=== PATIENT | male | born 1960 | race Caucasian/White ===

== ENCOUNTER 2019-10-26 12:29 | Inpatient (IN) ==
[2019-10-26] MEDS ORDERED: 0.9 % Sodium Chloride 1,000 ML IVC ONE (12:35)
[2019-10-26] MEDS ORDERED: GI Cocktail 40 ML EACH PO ONE (12:35)
[2019-10-26] MEDS ORDERED: Pantoprazole 40 MG VIAL IVP ONE (12:35)
[2019-10-26] MEDS ORDERED: Ondansetron 4 MG/2 ML VIAL IVP ONE ×2 (12:35→13:27)
[2019-10-26 12:55] LABS: Basophils % 0.2 %; Eosinophils # 0.2 K/mcL (0.0-0.6); Eosinophils % 1.2 %; Hematocrit 40.7 % (37.5-50.1); Hemoglobin 13.9 g/dL (12.9-16.9); Immature Granulocytes % 0.4 % (0-4); Lymphocytes # 1.1 K/mcL (0.6-4.6); Lymphocytes % 7.2 %; Mean Corpuscular HGB Conc 34.2 g/dL (31.6-35.5); Mean Corpuscular Hemoglobin 30.8 pg (28.0-33.3); Mean Platelet Volume 9.2 fL (9.4-12.4); Monocytes # 0.8 K/mcL (0.0-1.3); Monocytes % 5.4 %; Neutrophils # 12.8 K/mcL (1.6-8.9); Platelet Count 190 K/mcL (140-400); Red Blood Count 4.52 M/mcL (4.19-5.50); Red Cell Distribution Width 12.5 % (11.5-14.5); Segmented Neutrophils % 85.6 %; White Blood Count 14.9 K/mcL (4.3-11.1)
[2019-10-26 13:22] LABS: Troponin I < 0.03 ng/mL (< 0.04)
[2019-10-26 13:23] LABS: Alanine Aminotransferase 16 Units/L (7-52); Albumin 3.6 g/dL (3.5-5.7); Albumin/Globulin Ratio 1.6 (1.1-2.2); Alkaline Phosphatase 56 Units/L (34-104); Amylase > 2000 Units/L (29-103); Aspartate Amino Transferase 16 Units/L (13-39); BUN/Creatinine Ratio 19 (6-26); Bilirubin,Direct 0.1 mg/dL (0.0-0.2); Bilirubin,Indirect 0.7 mg/dL (0.0-1.0); Bilirubin,Total 0.8 mg/dL (0.3-1.0); Blood Urea Nitrogen 24 mg/dL (8-23); Calcium 8.8 mg/dL (8.6-10.3); Carbon Dioxide 29 mEq/L (23-29); Chloride 104 mEq/L (98-107); Globulin 2.2 g/dL (2.4-3.5); Glucose 131 mg/dL (70-105); Osmolality,Calculated 298 (280-300); Potassium 3.5 mEq/L (3.5-5.1); Sodium 141 mEq/L (136-145); Total Protein 5.8 g/dL (6.4-8.9); eGFR For African Americans > 60 (> 60); eGFR For Non-African Americans 57 (> 60)
[2019-10-26] MEDS ORDERED: Morphine Sulfate 2 MG/ML SYRINGE IVP ONE (13:27)
[2019-10-26 13:36] LABS: Lipase > 1800 Units/L (11-82)
[2019-10-26] MEDS ORDERED: Ondansetron 4 MG/2 ML VIAL IVP PRN (14:39)
[2019-10-26] MEDS ORDERED: Morphine Sulfate 2 MG/ML SYRINGE IVP PRN (14:45)
[2019-10-26] MEDS: *HR* OxyCODONE/APAP 5/325 TABLET PO PRN ×2 (17:26→23:46)
[2019-10-26] MEDS: 0.9 % Sodium Chloride 1,000 ML IVC SCH (17:34)
[2019-10-26] MEDS: Piperacillin/Tazobactam 3.375 GM in 0.9 % Sodium Chloride Mini Bag 100 ML IVPB SCH (17:35)
[2019-10-27] MEDS: Piperacillin/Tazobactam 3.375 GM in 0.9 % Sodium Chloride Mini Bag 100 ML IVPB SCH ×3 (01:51→15:36)
[2019-10-27] MEDS: 0.9 % Sodium Chloride 1,000 ML IVC SCH ×3 (01:53→18:46)
[2019-10-27 07:30] LABS: Basophils % 0.1 %; Eosinophils # 0.1 K/mcL (0.0-0.6); Eosinophils % 0.9 %; Hematocrit 37.5 % (37.5-50.1); Hemoglobin 13.1 g/dL (12.9-16.9); Immature Granulocytes % 0.3 % (0-4); Lymphocytes % 9.6 %; Mean Corpuscular HGB Conc 34.9 g/dL (31.6-35.5); Mean Corpuscular Hemoglobin 31.1 pg (28.0-33.3); Mean Corpuscular Volume 89.1 fL (83.0-100.0); Mean Platelet Volume 9.4 fL (9.4-12.4); Monocytes # 0.7 K/mcL (0.0-1.3); Monocytes % 6.8 %; Neutrophils # 8.2 K/mcL (1.6-8.9); Platelet Count 166 K/mcL (140-400); Red Blood Count 4.21 M/mcL (4.19-5.50); Red Cell Distribution Width 12.8 % (11.5-14.5); Segmented Neutrophils % 82.3 %
[2019-10-27 08:13] LABS: Alanine Aminotransferase 12 Units/L (7-52); Albumin 3.2 g/dL (3.5-5.7); Albumin/Globulin Ratio 1.7 (1.1-2.2); Alkaline Phosphatase 48 Units/L (34-104); Amylase 628 Units/L (29-103); Aspartate Amino Transferase 14 Units/L (13-39); BUN/Creatinine Ratio 23 (6-26); Bilirubin,Total 1.1 mg/dL (0.3-1.0); Blood Urea Nitrogen 30 mg/dL (8-23); Calcium 8.4 mg/dL (8.6-10.3); Carbon Dioxide 27 mEq/L (23-29); Chloride 107 mEq/L (98-107); Globulin 1.9 g/dL (2.4-3.5); Glucose 117 mg/dL (70-105); Lipase 1179 Units/L (11-82); Osmolality,Calculated 299 (280-300); Potassium 4.1 mEq/L (3.5-5.1); Sodium 141 mEq/L (136-145); Total Protein 5.1 g/dL (6.4-8.9); eGFR For African Americans > 60 (> 60); eGFR For Non-African Americans 57 (> 60)
[2019-10-27] MEDS: *HR* OxyCODONE/APAP 5/325 TABLET PO PRN ×2 (08:58→15:30)
[2019-10-27] MEDS ORDERED: lisinopriL 10 MG TABLET PO SCH (09:00)
[2019-10-27] MEDS: Famotidine 20 MG/2 ML VIAL IVP SCH ×2 (09:02→18:42)
[2019-10-27 09:07] LABS: Chol/HDL Ratio 4.3 (0-4.9)
[2019-10-27 11:21] LABS: Bilirubin,Urine Negative (Negative); Blood,Urine Negative (Negative); Clarity,Urine Clear (Clear); Color,Urine Yellow (Yellow); Glucose,Urine (UA) Normal (Normal); Ketones,Urine Negative (Negative); Leukocyte Esterase,Urine Negative (Negative); Nitrite,Urine Negative (Negative); Protein,Urine Negative (Neg-Trace); Specific Gravity,Urine 1.025 (1.010-1.025); Urobilinogen,Urine Normal (Normal)
[2019-10-27] MEDS ORDERED: *HR* Enoxaparin 40 MG/0.4 ML SYRINGE SQ ONE (17:32)
[2019-10-27] MEDS ORDERED: Famotidine 20 MG/2 ML VIAL IVP SCH (18:00)
[2019-10-28] MEDS: Piperacillin/Tazobactam 3.375 GM in 0.9 % Sodium Chloride Mini Bag 100 ML IVPB SCH ×3 (00:19→17:13)
[2019-10-28] MEDS: *HR* OxyCODONE/APAP 5/325 TABLET PO PRN ×2 (00:24→15:04)
[2019-10-28] MEDS: 0.9 % Sodium Chloride 1,000 ML IVC SCH ×2 (01:36→23:22)
[2019-10-28] MEDS: Famotidine 20 MG/2 ML VIAL IVP SCH ×2 (06:04→17:13)
[2019-10-28 06:29] LABS: Basophils % 0.2 %; Eosinophils # 0.1 K/mcL (0.0-0.6); Eosinophils % 1.4 %; Hematocrit 34.8 % (37.5-50.1); Hemoglobin 11.9 g/dL (12.9-16.9); Immature Granulocytes % 0.3 % (0-4); Lymphocytes # 0.9 K/mcL (0.6-4.6); Lymphocytes % 9.4 %; Mean Corpuscular HGB Conc 34.2 g/dL (31.6-35.5); Mean Corpuscular Hemoglobin 30.5 pg (28.0-33.3); Mean Corpuscular Volume 89.2 fL (83.0-100.0); Mean Platelet Volume 9.4 fL (9.4-12.4); Monocytes # 0.7 K/mcL (0.0-1.3); Monocytes % 7.7 %; Neutrophils # 7.6 K/mcL (1.6-8.9); Platelet Count 121 K/mcL (140-400); Red Cell Distribution Width 12.5 % (11.5-14.5); White Blood Count 9.4 K/mcL (4.3-11.1)
[2019-10-28 06:48] LABS: Alanine Aminotransferase 10 Units/L (7-52); Albumin/Globulin Ratio 1.6 (1.1-2.2); Alkaline Phosphatase 45 Units/L (34-104); Amylase 268 Units/L (29-103); Aspartate Amino Transferase 11 Units/L (13-39); BUN/Creatinine Ratio 24 (6-26); Bilirubin,Total 1.4 mg/dL (0.3-1.0); Blood Urea Nitrogen 24 mg/dL (8-23); Calcium 7.9 mg/dL (8.6-10.3); Chloride 109 mEq/L (98-107); Globulin 1.9 g/dL (2.4-3.5); Glucose 93 mg/dL (70-105); Lipase 268 Units/L (11-82); Osmolality,Calculated 294 (280-300); Potassium 3.9 mEq/L (3.5-5.1); Sodium 140 mEq/L (136-145); Total Protein 4.9 g/dL (6.4-8.9); eGFR For African Americans > 60 (> 60); eGFR For Non-African Americans > 60 (> 60)
[2019-10-28 07:19] LABS: Carbon Dioxide 23 mEq/L (23-29)
[2019-10-29] MEDS: Piperacillin/Tazobactam 3.375 GM in 0.9 % Sodium Chloride Mini Bag 100 ML IVPB SCH ×2 (00:26→07:59)
[2019-10-29] MEDS: *HR* OxyCODONE/APAP 5/325 TABLET PO PRN (00:28)
[2019-10-29] MEDS: Famotidine 20 MG/2 ML VIAL IVP SCH (06:04)
[2019-10-29 06:26] VITALS: BP 143/83
[2019-10-29 09:22] LABS: Hematocrit 33.1 % (37.5-50.1); Hemoglobin 11.5 g/dL (12.9-16.9); Mean Corpuscular HGB Conc 34.7 g/dL (31.6-35.5); Mean Corpuscular Hemoglobin 30.8 pg (28.0-33.3); Mean Corpuscular Volume 88.7 fL (83.0-100.0); Mean Platelet Volume 9.6 fL (9.4-12.4); Platelet Count 126 K/mcL (140-400); Red Blood Count 3.73 M/mcL (4.19-5.50); Red Cell Distribution Width 12.4 % (11.5-14.5); White Blood Count 8.2 K/mcL (4.3-11.1)
[2019-10-29 10:12] LABS: Amylase 98 Units/L (29-103); BUN/Creatinine Ratio 18 (6-26); Blood Urea Nitrogen 18 mg/dL (8-23); Calcium 8.1 mg/dL (8.6-10.3); Carbon Dioxide 25 mEq/L (23-29); Chloride 106 mEq/L (98-107); Glucose 147 mg/dL (70-105); Lipase 85 Units/L (11-82); Osmolality,Calculated 291 (280-300); Potassium 3.9 mEq/L (3.5-5.1); Sodium 138 mEq/L (136-145); eGFR For African Americans > 60 (> 60); eGFR For Non-African Americans > 60 (> 60)
== END 2019-10-29 12:31 | disposition home or self-care (01) | DRG 440 ==
LOC: INPPIK 12:29 → EMEROOPIK 12:29 → INPPIK 14:05
PROVIDERS: ADMIT Family Medicine; ATTEND Family Medicine